=== PATIENT | female | born 1965 | race Asian ===

== ENCOUNTER 2024-01-18 22:02 | Emergency (ER) | payer OTHER ==
[2024-01-18 22:08] VITALS: BP 129/61; PULSE 100; RESP 18; TEMP 98.4; BMI 22.1
[2024-01-18 22:55] LABS: BASO % 0.8 % (0-2.0); EOS % 0.3 % (0-4.5); HEMATOCRIT 31.8 % (32.4-45.2); HEMOGLOBIN 10.4 GM/dL (10.7-15.3); LYMPH % 38.4 % (8-40); MCH 23.4 pg (25.7-33.7); MCHC 32.6 g/dl (32.0-36.0); MEAN CELL VOLUME 71.7 fl (80-96); MEAN PLT VOLUME 8.9 fl (7.5-11.1); MONO % 16.6 % (3.8-10.2); NEUT % 43.9 % (42.8-82.8); PLATELET COUNT 154 10^3/uL (134-434); RBC 4.43 M/mm3 (3.60-5.2); WHITE BLOOD COUNT 3.8 K/mm3 (4.0-10.0)
[2024-01-18 23:28] LABS: POTASSIUM 4.6 mmol/L (3.5-5.1)
[2024-01-18 23:30] LABS: CALCIUM 8.7 mg/dL (8.5-10.1)
[2024-01-18 23:31] LABS: ALBUMIN 3.4 g/dl (3.4-5.0); BLOOD UREA NITROGEN 14.1 mg/dL (7-18)
[2024-01-18 23:33] LABS: CREATININE 0.6 mg/dL (0.55-1.3)
[2024-01-18 23:35] LABS: BILIRUBIN,TOTAL 0.4 mg/dL (0.2-1); TOT PROT 6.9 g/dl (6.4-8.2)
== END 2024-01-19 | disposition home or self-care (01) ==
LOC: JER 22:02
DX: R53.83 Other fatigue (principal); E03.9 Hypothyroidism, unspecified
CPT/HCPCS: 36415; 80053; 84439; 84443; 85025; 93005; 93010; 99284-25